=== PATIENT | male | born 2000 | race African-American/Black ===

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

== ENCOUNTER 2020-10-21 09:57 | Emergency (ER) | payer BC ==
--- NOTE | 2020-10-21 10:24 | EDM.PDOC ---
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 He reports he had immediate pain in the area and there has been swelling that has increased over time in the posterior calf proximally and the right knee. He has a bit of a deformity in the proximal part of his calf on the right leg. He is unable to ambulate or bear weight on the right leg secondary to the pain and he has been using crutches with limited weightbearing on the right leg. Is normal sensation in his foot. The pain is much worse with movement and with palpation. He reports the pain now as a 10/10 and it is a sharp and tight pain. There are no other associated signs or symptoms. There are no other modifying factors. 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 Social & Family History - Tobacco Use Tobacco Use Status *Q: Never Tobacco User - Caffeine Use Caffeine Use: Reports: None - Alcohol Use Alcohol Use History: No - Recreational Drug Use Recreational Drug Use: Yes Recreational Drug Type: Reports: Marijuana/Hashish - Living Situation & Occupation Occupation: Student (At [employer]) Social History Comment: He is from [place]. Review of Systems - Review of Systems Review Of Systems: See Below Constitutional: Reports: No Symptoms Eyes: Reports: Foreign Body Sensation Ears: Denies: Pain Nose: Denies: Congestion, Pain Mouth/Throat: Denies: Pain, Difficulty Swallowing, Painful Swallowing Respiratory: Denies: Shortness of Breath, Cough Cardiovascular: Denies: Chest Pain, Palpitations GI/Abdominal: Denies: Abdominal Pain, Diarrhea, Nausea Genitourinary: Denies: Dysuria, Hematuria Musculoskeletal: Reports: Leg Pain (Right proximal, posterior lower leg), Joint Pain (Right knee pain) Skin: Denies: Rash, Erythema Neurological: Denies: Dizziness, Headache Psychiatric: Denies: Confusion ED EXAM, GENERAL - Physical Exam Exam: See Below Exam Limited By: No Limitations General Appearance: Alert, WD/WN, Moderate Distress (Appears in some pain.) Eye Exam: Bilateral Eye: EOMI, Normal Inspection, PERRL Ears: Normal External Exam, Hearing Grossly Normal Ear Exam: Bilateral Ear: Auricle Normal Nose: Normal Inspection, Normal Mucosa, No Blood Throat/Mouth: Normal Inspection, Normal Lips, Normal Oropharynx, Normal Voice, No Airway Compromise Head: Atraumatic, Normocephalic Neck: Normal Inspection, Supple, Non-Tender, Full Range of Motion Respiratory/Chest: No Respiratory Distress, Lungs Clear, Normal Breath Sounds, No Accessory Muscle Use, Chest Non-Tender Cardiovascular: Normal Peripheral Pulses, Regular Rate, Rhythm, No Murmur Peripheral Pulses: 2+: Radial (L), Radial (R), Dorsalis Pedis (L), Dorsalis Pedis (R) GI/Abdominal: Normal Bowel Sounds, Soft, Non-Tender, No Mass Back Exam: Normal Inspection, Full Range of Motion Extremities: Leg Pain, Limited Range of Motion, Other (Right knee with swelling. There is a deformity in the proximal calf and leg there is also an effusion but it seems to be more suprapatellar and there is no crepitus. Range of motion is limited secondary to pain. There is some tense edema in this area. Has a good dorsalis pedis pulse) Neurological: Alert, Oriented, CN II-XII Intact, Normal Cognition, No Motor/Sensory Deficits Psychiatric: Normal Affect, Normal Mood Skin Exam: Warm, Dry, Intact, Normal Color, No Rash Course - Vital Signs Last Recorded V/S: Last Vital Signs Temp 38.1 C 10/21/20 09:57 Pulse 70 10/21/20 09:57 Resp 20 10/21/20 09:57 BP 119/68 10/21/20 09:57 Pulse Ox 98 10/21/20 09:57 - Orders/Labs/Meds Orders: Active Orders 24 hr Category Date Time Status Knee 1V or 2V Rt [CR] Stat Exams 10/21/20 10:33 Taken Tibia Fibula Rt [CR] Stat Exams 10/21/20 10:33 Taken SJ Bandage [Elastic Wrap] [OM.PC] Routine Oth 10/21/20 11:57 Ordered Meds: Medications Discontinued Medications Generic Name Dose Route Start Last Admin Trade Name Freq PRN Reason Stop Dose Admin Hydrocodone Bitart/Acetaminophen 2 tab 10/21/20 10:34 10/21/20 10:45 Acetaminophen/Hydrocodone 325-5 Mg Tab PO 10/21/20 10:35 2 tab ONETIME ONE Administration - Radiology Interpretation Free Text/Narrative:: Right knee x-ray shows no definite bony abnormality per my read. Right tib-fib x-ray shows no definite bony abnormality per my read. - Re-Assessments/Exams Free Text/Narrative Re-Assessment/Exam: 10/21/20 12:00: The patient reports his pain is may be slightly better. He states he feels tired but has not had a great developed pain relief. Of his knee and tib-fib show no definite bony abnormality per my read. I suspect this may be a muscle tear in his calf muscles and he will need follow-up with retail presentation specialist. 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 We will apply an Sj wrap to his right knee and proximal lower leg and I will have him continue to use crutches with really no weightbearing on his right leg. I will also give him a prescription of hydrocodone 7.5/325 (12). Ibuprofen 800 mg by mouth every 8 hours as needed for pain. He should apply ice packs intermittently to this area. Departure - Departure Time of Disposition: 12:05 Disposition: Home, Self-Care 01 Condition: Good Clinical Impression: Strain of right calf muscle Right knee sprain Qualifiers: Encounter type: initial encounter Involved ligament of knee: unspecified ligament Qualified Code(s): S83.91XA - Sprain of unspecified site of right knee, initial encounter - Discharge Information Prescriptions: Hydrocodone/Acetaminophen [HYDROcodone-Acetaminophen 7.5-325 MG] 1 - 2 each PO Q6H PRN #12 tablet PRN Reason: Moderate to severe pain Instructions: Muscle Strain, [id number], Crutch Use, Adult, [id number], Knee Sprain, Adult, [id number] Referrals: PCP,None [Primary Care Provider] - Additional Instructions: The x-rays of your knee and lower leg showed no definite bony problem or any fracture. As we discussed, this is either a problem with a ligament in your knee or possibly torn calf muscle torn calf insertion. Use the Sj wrap for comfort and support. Apply ice packs intermittently to the swollen areas the next 2-3 days. Elevate right knee as often as possible. Use crutches with no weightbearing on the right leg. You will need to follow-up with an retail presentation specialist. You should have your employment coach or your hardware trainer arrange for that this week. Medication as prescribed for moderate to severe pain (hydrocodone 7.5/325). You can also take ibuprofen 800 mg by mouth every 8 hours as needed for pain. Sepsis Event Note (ED) - Focused Exam Vital Signs: Vital Signs Temp Pulse Resp BP Pulse Ox 10/21/20 09:57 38.1 C 70 20 119/68 98 - My Orders Last 24 Hours: My Active Orders 10/21/20 10:33 Knee 1V or 2V Rt [CR] Stat Tibia Fibula Rt [CR] Stat 10/21/20 11:57 SJ Bandage [Elastic Wrap] [OM.PC] Routine - Assessment/Plan Last 24 Hours: My Active Orders 10/21/20 10:33 Knee 1V or 2V Rt [CR] Stat Tibia Fibula Rt [CR] Stat 10/21/20 11:57 SJ Bandage [Elastic Wrap] [OM.PC] Routine
[2020-10-21] MEDS ORDERED: Acetaminophen/HYDROcodone 325-5 MG Tab PO ONE (10:34)
--- NOTE | 2020-10-22 11:09 | CR ---
INDICATION: Injury, now with pain. RIGHT TIBIA/FIBULA: Frontal and lateral views of the right tibial and fibula were obtained with four images 10/21/20 - no comparisons. An acute fracture, dislocation or other significant bone or joint abnormality was not identified. If symptoms persist - if occult fracture site is suspected clinically, reexamination in 10 to 14 days may be helpful. MTDD
--- NOTE | 2020-10-22 11:11 | CR ---
INDICATION: Injury, now with pain. RIGHT KNEE: Frontal and lateral views of the right knee revealed no evidence of an acute fracture site. No dislocation was seen. There is question of some increased density overlying the suprapatellar bursa, raising question of a knee joint effusion. This should be correlated clinically. Additional examination such as MRI may be warranted depending upon clinical correlation. No other significant bone or joint abnormality was suggested. MTDD
== END 2020-10-21 12:30 | disposition home or self-care (01) ==
LOC: FB.ED 09:57
DX: S83.91XA Sprain of unspecified site of right knee, initial encounter (principal); S86.911A Strain of unspecified muscle(s) and tendon(s) at lower leg level, right leg, initial encounter; J45.909 Unspecified asthma, uncomplicated; X50.1XXA Overexertion from prolonged static or awkward postures, initial encounter; Y93.61 Activity, american tackle football
CPT/HCPCS: 73560; 73590; 99283; A9270